=== PATIENT | male | born 1985 | race Caucasian/White ===

== ENCOUNTER 2017-01-02 21:35 | Emergency (ER) | payer OTHER ==
[2017-01-02 21:46] VITALS: TEMP 96.6
--- NOTE | 2017-01-02 22:31 | ED ---
General Adult HPI - General Chief complaint: Weakness Stated complaint: Dizzy/lightheaded Time Seen by Provider: 01/02/17 22:00 Source: patient, family, RN notes reviewed Mode of arrival: ambulatory Limitations: no limitations - History of Present Illness Initial comments: Chief complaint and history of present illness a 31-year-old male here with a complaint of having a possible adverse reaction to medication he started 2 days ago. The patient's been on Zoloft 50 mg once a day for the past 2 days but also during that time he smoked marijuana. Patient reports she went on the medication order to control his anxiety. He reports became much worse while on the medication possibly conjunction with the marijuana. He reports this time now though he feels much better. No thoughts of hurting himself or anybody else. States under great deal of stress with work and family he has state that they have 8 children between them between the ages of 5 and 13. This is a combination of 2 families. He also states he is having some difficulty with his 13-year-old daughter. Patient is here because he did not like the way he felt while on the medication. Prior to this he smokes marijuana regularly. - Related Data Home Medications Medication Instructions Recorded Confirmed No Known Home Medications [No 08/12/15 08/12/15 Known Home Medications] Allergies Allergy/AdvReac Type Severity Reaction Status Date / Time No Known Allergies Allergy Verified 01/02/17 21:45 Review of Systems ROS Statement: Those systems with pertinent positive or pertinent negative responses have been documented in the HPI. Review of systems currently no headache or chest pain or shortness of breath GI/ problems. Answering questions appropriately. Does not say his depressed or suicidal. He states she's anxious because of the side effect with the way the drug made him feel. All systems are reviewed. Past medical problems none mentioned. He has had mild chronic anxiety denies any medical problems. Family history noncontributory no known ALLERGIES. Denies drug use of the marijuana. She states she is ALLERGIC rate still stress ROS Other: All systems not noted in ROS Statement are negative. Past Medical History Past Medical History: No Reported History History of Any Multi-Drug Resistant Organisms: None Reported Past Surgical History: No Surgical Hx Reported Past Psychological History: Anxiety Smoking Status: Former smoker Past Alcohol Use History: Occasional Past Drug Use History: None Reported, Marijuana General Exam - General Exam Comments Initial Comments: General: The patient is awake and alert, in no distress, and does not appear acutely ill. Feeling better now than he did earlier. Less stressed less confused less anxious. He states he was feeling funny and seeing spots. This was after he smoked marijuana after having taken Zoloft. Vital signs temp 96.6 pulse 105 respiratory rate 20 pulse ox 97% room air blood pressure elevated at 169/93. This will be repeated. Eye: Pupils are equal, round and reactive to light, extra-ocular movements are intact ; there is normal conjunctiva bilaterally. No signs of icterus. Ears, nose, mouth and throat: There are moist mucous membranes Neck: The neck is supple, there is no tenderness Cardiovascular: There is a regular rate and rhythm. No murmur, rub or gallop is appreciated. Respiratory: Lungs are clear to auscultation, respirations are non-labored, breath sounds are equal. No wheezes, stridor, rales, or rhonchi. Gastrointestinal: Soft, non-distended, non-tender abdomen without masses or organomegaly noted. There is no rebound or guarding present. No CVA tenderness. Bowel sounds are unremarkable. Back: There is no tenderness to palpation in the midline. There is no obvious deformity. No rashes noted. Musculoskeletal: Normal ROM, no tenderness, There is no pedal edema. There is no calf tenderness or swelling. Sensation intact. Pulses equal bilaterally 2+. Neurological: CN II-XII intact, There are no obvious motor or sensory deficits. Coordination appears grossly intact. Speech is normal. No focal or lateralizing findings. Skin: Skin is warm and dry and no rashes or lesions are noted. Psychiatric: Cooperative, appropriate mood & affect, normal judgment. Answer questions appropriately. Finds his adverse reaction somewhat humerus at this time. States he felt this good prior to coming emergency room he wouldn't be here at this time. We did discuss polysubstance use complaining Zoloft with marijuana. Strongly suggesting he stopped the marijuana. Limitations: no limitations Course Vital Signs 01/02/17 21:43 Temperature 96.6 F L Pulse Rate 105 H Respiratory 20 Rate Blood Pressure 169/93 O2 Sat by Pulse 97 Oximetry Medical Decision Making - Medical Decision Making Medical decision-making. The patient reports feeling much better now. He will be advised to stop the marijuana and if after one more day of Zoloft he still having symptoms. Zoloft. He might consider taking only 25 mg instead of 50. Otherwise follow-up with his counselor her family physician. She did become anxious and had difficulty she is to return emergency room. Patient states that one previous occasion he took Wellbutrin could only stand no arrhythmia and field for 2 days. Then stopped it. Disposition Clinical Impression: Adverse reaction to antidepressant drug Disposition: HOME SELF-CARE Condition: Stable Instructions: Generalized Anxiety Disorder (ED) Additional Instructions: Tried taking only 25 mg of Zoloft and if he continued to feel irregular while taking it stop it and follow-up with your counselor. Time of Disposition: 22:33
[2017-01-02 22:43] VITALS: BP 155/90; PULSE 102; RESP 16
== END 2017-01-02 22:43 | disposition home or self-care (01) ==
LOC: EC 21:35
DX: R53.1 Weakness (principal); T43.225A Adverse effect of selective serotonin reuptake inhibitors, initial encounter; F15.90 Other stimulant use, unspecified, uncomplicated; F12.90 Cannabis use, unspecified, uncomplicated; F41.9 Anxiety disorder, unspecified; Z87.891 Personal history of nicotine dependence
CPT/HCPCS: 99284